=== PATIENT | male | born 1995 | race Caucasian/White ===

== ENCOUNTER 2019-06-10 06:27 | Emergency (ER) | payer OTHER ==
[~2019-06-10] VITALS: Ht 167.6 cm; Wt 103.9 kg
[2019-06-10 06:33] VITALS: BP 132/93; Ht 167.6 cm; Wt 103.9 kg
== END 2019-06-10 08:34 | disposition home or self-care (01) ==
LOC: ED 06:27
DX: L05.91 Pilonidal cyst without abscess (principal)
CPT/HCPCS: J2001

== ENCOUNTER 2019-06-12 07:04 | Emergency (ER) | payer OTHER ==
[~2019-06-12] VITALS: Ht 167.6 cm; Wt 104.3 kg
[2019-06-12 07:12] VITALS: BP 135/87; Ht 167.6 cm; Wt 104.3 kg
== END 2019-06-12 07:42 | disposition home or self-care (01) ==
LOC: ED 07:04
DX: L05.01 Pilonidal cyst with abscess (principal)